=== PATIENT | female | born 1975 | race Caucasian/White ===

== ENCOUNTER 2018-05-23 20:40 | Emergency (ER) | payer OTHER ==
[~2018-05-23] VITALS: Ht 154.9 cm; Wt 94.3 kg
[2018-05-23] MEDS ORDERED: ESOM20CA PO (21:14)
--- NOTE | 2018-05-23 21:17 | NUR ---
Pt ambulated to bathroom, urine sample requested.
--- NOTE | 2018-05-23 21:19 | NUR ---
Lab at bedside.
--- NOTE | 2018-05-23 21:20 | NUR ---
Pt to US, with tech, via aditya.
[2018-05-23 21:40] LABS: MEAN CORPUSCULAR HGB CONC 32.7 g/dL (32.4-35.8); MEAN CORPUSCULAR VOLUME 76.3 fL (80-100); MEAN PLATELET VOLUME 7.5 fL (7.4-10.4); PLATELET COUNT 655 x10^3/uL (130-400); RED BLOOD COUNT 4.86 x10^6/uL (3.82-5.3); RED CELL DISTRIBUTION WIDTH 18.5 % (9.6-15.2)
[2018-05-23 21:46] LABS: ALANINE AMINOTRANSFERASE 11 U/L (12-78); ALBUMIN 3.3 g/dL (3.4-5.0); ANION GAP 6 mmol/L (5-15); CALCIUM 8.6 mg/dL (8.5-10.1); CHLORIDE 105 mmol/L (98-107)
[2018-05-23 21:48] LABS: MICROSCOPIC AUTO
[2018-05-23 21:52] LABS: CULTURE INDICATED? YES
[2018-05-23 22:03] LABS: ALKALINE PHOSPHATASE 87 U/L (45-117); BILIRUBIN,TOTAL 0.2 mg/dL (0.2-1.0); CREATININE 0.53 mg/dL (0.55-1.02); TOTAL PROTEIN 8.5 g/dL (6.4-8.2)
[2018-05-23 22:04] LABS: BASOPHILS # (AUTO) 0.02 x10^3/uL (0-0.1); BASOPHILS % (AUTO) 0 % (0-1); EOSINOPHILS # (AUTO) 0.17 x10^3/uL (0-0.4); EOSINOPHILS % (AUTO) 1 % (1-7); LYMPHOCYTES # (AUTO) 3.97 x10^3/uL (1-3.4); LYMPHOCYTES % (AUTO) 29 % (22-44); MD SCAN; MONOCYTES # (AUTO) 0.14 x10^3/uL (0.2-0.8); MONOCYTES % (AUTO) 1 % (2-9); NEUTROPHILS # (AUTO) 9.29 x10^3/uL (1.8-6.8); NEUTROPHILS % (AUTO) 68 % (42-75)
[2018-05-23] MEDS ORDERED: CEFDINIR 250 MG/5 ML, ORAL SUSP PO ONE (22:30)
[2018-05-23] MEDS ORDERED: CEFDINIR 300 MG CAPSULE ONE ×2 (22:37→22:46)
--- NOTE | 2018-05-23 22:48 | NUR ---
Pt medicated per MAR.
[2018-05-23 23:03] VITALS: BP 124/64
--- NOTE | 2018-05-23 23:04 | NUR ---
Patient/Caregiver given discharge instructions and they have confirmed that they understand the instructions. Patient ambulatory with steady gait.
== END 2018-05-23 23:05 | disposition home or self-care (01) ==
LOC: ED 22:43
DX: O20.0 Threatened abortion (principal); O23.11 Infections of bladder in pregnancy, first trimester
CPT/HCPCS: 36415; 76801; 80053; 81001; 84702; 85025; 86901; 87086; 99284

== ENCOUNTER 2018-07-07 14:48 | Emergency (ER) | payer OTHER ==
[~2018-07-07] VITALS: Ht 154.9 cm; Wt 96.3 kg
[~2018-07-07 14:48] MED LIST: ESOM20CA PO
--- NOTE | 2018-07-07 15:12 | NUR ---
MACHINE SET UP: PT AMBULATORY TO ROOM FROM [facility]. L&D NOTIFIED, PER GAYATRI THEY WILL BE DONE TO ASSESS FHT
--- NOTE | 2018-07-07 15:17 | NUR ---
L&D RN at bedside for assessment.
--- NOTE | 2018-07-07 15:17 | NUR ---
First contact with pt. Pt c/o REYNOSO x1 week, since began feeling tightness in chest, hard to swallow. Pt speaking in full sentences, resp even and unlabored, NADN. Pt placed in gown, positioned for comfort in bed, all safety measures observed.
[2018-07-07 15:18] LABS: BASOPHILS # (AUTO) 0.02 x10^3/uL (0-0.1); BASOPHILS % (AUTO) 0 % (0-1); EOSINOPHILS # (AUTO) 0.04 x10^3/uL (0-0.4); EOSINOPHILS % (AUTO) 1 % (1-7); LYMPHOCYTES # (AUTO) 1.77 x10^3/uL (1-3.4); LYMPHOCYTES % (AUTO) 22 % (22-44); MD NO; MEAN CORPUSCULAR HEMOGLOBIN 25.1 pg (27.0-34.8); MEAN PLATELET VOLUME 6.7 fL (7.4-10.4); MONOCYTES # (AUTO) 0.68 x10^3/uL (0.2-0.8); MONOCYTES % (AUTO) 8 % (2-9); NEUTROPHILS # (AUTO) 5.68 x10^3/uL (1.8-6.8); NEUTROPHILS % (AUTO) 69 % (42-75); PLATELET COUNT 566 x10^3/uL (130-400); RED CELL DISTRIBUTION WIDTH 17.4 % (9.6-15.2)
[2018-07-07 15:23] VITALS: BP 143/81
[2018-07-07 15:30] LABS: ALBUMIN 2.6 g/dL (3.4-5.0); ANION GAP 8 mmol/L (5-15); CALCIUM 9.2 mg/dL (8.5-10.1); CHLORIDE 103 mmol/L (98-107)
[2018-07-07] MEDS ORDERED: SODIUM CHLORIDE FLUSH 10ML SYR IVF ONE (15:30)
[2018-07-07 15:37] LABS: ALANINE AMINOTRANSFERASE 12 U/L (12-78); ALKALINE PHOSPHATASE 99 U/L (45-117); BILIRUBIN,TOTAL 0.2 mg/dL (0.2-1.0); CREATININE 0.57 mg/dL (0.55-1.02); TOTAL PROTEIN 8.3 g/dL (6.4-8.2); TROPONIN I < 0.015 ng/mL (0.000-0.045)
== END 2018-07-07 16:25 | disposition home or self-care (01) ==
LOC: ED 16:10
DX: O99.512 Diseases of the respiratory system complicating pregnancy, second trimester (principal); R06.00 Dyspnea, unspecified; J45.909 Unspecified asthma, uncomplicated; Z3A.15 15 weeks gestation of pregnancy
CPT/HCPCS: 36415; 71045; 80053; 83690; 83880; 84484; 85025; 93005; 99284